=== PATIENT | female | born 1970 | race Caucasian/White ===

== ENCOUNTER 2019-12-16 07:37 | Day surgery (SDC) | payer OTHER ==
[2019-12-13 16:08] VITALS: BMI 23.6
[2019-12-16 10:12] VITALS: PULSE 60; TEMP 98
[2019-12-16 10:44] VITALS: BP 92/64
--- NOTE | 2019-12-17 16:00 | PATH ---
Surgical Pathology Report Patient Name: [facility]ERESE [facility]. Rec. #: [id number] /Age/Gender: 1970 (Age: 49) / F Account: [id number] Location: [facility]-ENDOSCOPY Taken: 12/16/2019 Received: 12/16/2019 Reported: 12/17/2019 Physicians: Juana Guzman M.D. Specimen(s) Received ASCENDING COLON Clinical History Screening Postoperative diagnosis: Colon polyp Final Diagnosis ASCENDING COLON, POLYP, BIOPSY: TUBULAR ADENOMA. Electronically Signed Mulu Galeana M.D. Gross Description Received in formalin, labeled "polyp ascending colon" is a palumbo, irregular portion of soft tissue measuring 0.9 cm. in greatest dimension. The specimen is submitted in toto in one cassette. /12/16/2019 [facility]2019
== END 2019-12-16 10:45 | disposition home or self-care (01) ==
LOC: JASU-ENDO 07:37
PROVIDERS: ATTEND Internal Medicine Gastroenterology
PROC: 0DBK8ZX Excision of Ascending Colon, Via Natural or Artificial Opening Endoscopic, Diagnostic (ICD-10-PCS; principal; 2019-12-16 09:00)
DX: Z12.11 Encounter for screening for malignant neoplasm of colon (principal); D12.2 Benign neoplasm of ascending colon
CPT/HCPCS: 88305-TC